=== PATIENT | male | born 1985 | race Caucasian/White ===

== ENCOUNTER 2018-03-30 12:24 | Inpatient (IN) | payer OTHER ==
[2018-03-30 13:15] VITALS: BMI 29.2
--- NOTE | 2018-03-30 15:53 | HP ---
CIWA Score - CIWA Score Nausea/Vomitin Muscle Tremors: 3 Anxiety: 3 Agitation: 3 Paroxysmal Sweats: 3 Orientation: 1-Uncertain about Date Tacttile Disturbances: 2-Mild Itch/Numbness/Burn Auditory Disturbances: 0-None Visual Disturbances: 0-None Headache: 0-None Present CIWA-Ar Total Score: 18 Admission ROS BHS - HPI Chief Complaint: "I am sick and tired of drinking and I need to get clean" Allergies/Adverse Reactions: Allergies Allergy/AdvReac Type Severity Reaction Status Date / Time trazodone AdvReac Severe Verified 03/30/18 15:53 History of Present Illness: 33 y/o male with a long history of alcohol addiction here today for alcohol detox. This is pt's first visit here although he stated he has had detox/rehab in the past. Endorses a hx of anxiety, depression, and bipolar and Pancreatitis Pt states he had attempted suicide in the past by attempting to jump in front of train a and by swallowing a bunch of pills as a second attempt. Denies any current Suicidal or homicidal ideation. Exam Limitations: No Limitations - Ebola screening Have you traveled outside of the country in the last 21 days: No (N) Have you had contact with anyone from an Ebola affected area: No Have you been sick,other than usual withdrawal symptoms: No Do you have a fever: No - Review of Systems Constitutional: No Symptoms Reported EENT: reports: Other (Has shortsigtedness but does not wear glasses) Respiratory: reports: No Symptoms reported Cardiac: reports: No Symptoms Reported GI: reports: No Symptoms Reported : reports: No Symptoms Reported Musculoskeletal: reports: Joint Pain Integumentary: reports: No Symptoms Reported Neuro: reports: No Symptoms reported Endocrine: reports: No Symptoms Reported Hematology: reports: No Symptoms Reported Psychiatric: reports: Mood/Affect Appropiate, Anxious Other Systems: Reviewed and Negative Patient History - Patient Medical History Hx Anemia: No Hx Asthma: No Hx Chronic Obstructive Pulmonary Disease (COPD): No Hx Cancer: No Hx Cardiac Disorders: No Hx Congestive Heart Failure: No Hx Hypertension: No (Dx and treated for HTN before, states diet controlled now.) Hx Hypercholesterolemia: No Hx Pacemaker: No HX Cerebrovascular Accident: No Hx Seizures: Yes (2013, alcohol-related) Hx Dementia: No Hx Diabetes: No Hx Gastrointestinal Disorders: Yes (GERD, on protonix) Hx Liver Disease: No Hx Genitourinary Disorders: No Hx Sexually Transmitted Disorders: No Hx Renal Disease (ESRD): No Hx Thyroid Disease: No Hx Human Immunodeficiency Virus (HIV): No (negative, lasted tested 12/2017) Hx Hepatitis C: No Hx Depression: Yes (treated but not on meds again) Hx Suicide Attempt: Yes (Previous attempt in the past. Denies current SI/HI) Hx Bipolar Disorder: Yes (treated before, not on meds now) Hx Schizophrenia: No - Patient Surgical History Past Surgical History: No Hx Neurologic Surgery: No Hx Cataract Extraction: No Hx Cardiac Surgery: No Hx Lung Surgery: No Hx Breast Surgery: No Hx Breast Biopsy: No Hx Abdominal Surgery: No Hx Appendectomy: No Hx Cholecystectomy: No Hx Genitourinary Surgery: No Hx Section: No Hx Orthopedic Surgery: No Hx Hysterectomy: No Anesthesia Reaction: No - PPD History Previous Implant?: Yes Documented Results: Negative w/o proof Implanted On Prior R Admission?: No PPD to be Administered?: Yes - Reproductive History Patient is a Female of Child Bearing Age (11 -55 yrs old): No - Smoking Cessation Smoking history: Current every day smoker Have you smoked in the past 12 months: Yes Aproximately how many cigarettes per day: 25 Initiated information on smoking cessation: Yes 'Breaking Loose' booklet given: 03/30/18 - Substances Abused Alcohol Route: Oral Frequency: Daily Amount used: 6 (6 x 24 0z) Age of first use: 17 Date of Last Use: 03/29/18 Family Disease History - Family Disease History Family Disease History: Other: Mother (Anxiety) Admission Physical Exam S - Vital Signs Vital Signs: Vital Signs - 24 hr 03/30/18 13:09 Temperature 98.4 F Pulse Rate 91 H Respiratory 18 Rate Blood Pressure 128/83 - Physical General Appearance: Yes: Mild Distress HEENTM: Yes: Within Normal Limits Respiratory: Yes: Within Normal Limits, No Respiratory Distress Neck: Yes: Within Normal Limits Breast: Yes: Breast Exam Deferred Cardiology: Yes: Regular Rhythm Abdominal: Yes: Non Tender, Distended Genitourinary: Yes: Within Normal Limits Back: Yes: Normal Inspection Musculoskeletal: Yes: full range of Motion, Gait Steady Extremities: Yes: Normal Capillary Refill Neurological: Yes: Within Normal Limits, Fully Oriented, Alert Integumentary: Yes: Within Normal Limits Lymphatic: Yes: Within Normal Limits - Diagnostic (1) Alcohol dependence with uncomplicated withdrawal Current Visit: Yes Status: Acute (2) Nicotine dependence Current Visit: Yes Status: Acute (3) Pancreatitis Current Visit: Yes Status: Chronic (4) Anxiety Current Visit: Yes Status: Chronic (5) Depression Current Visit: Yes Status: Chronic Cleared for Admission [facility] - Detox or Rehab [facility] Level of Care: Medically Managed Detox Regimen/Protocol: Librium S Breath Alcohol Content Breath Alcohol Content: 0.131 Urine Drug Screen - Results Drug Screen Negative: No Urine Drug Screen Results: BZO-Benzodiazepines
[2018-03-30] MEDS ORDERED: MAG HYDROX/AL HYDROX/SIMETH 30 ML UNIT-DOSE CUP PO PRN (17:03)
[2018-03-30] MEDS ORDERED: MAGNESIUM CITRATE 300 ML BOTTLE PO PRN (17:03)
[2018-03-30] MEDS ORDERED: ACETAMINOPHEN 325 MG TABLET (FP) PO PRN (17:03)
[2018-03-30] MEDS ORDERED: MAGNESIUM HYDROX 2400MG/30ML ORAL SUSPENSION 30 ML CUP PO PRN (17:03)
[2018-03-30] MEDS ORDERED: P-EPHED 60MG/TRIPROLIDI 2.5MG TABLET PO PRN (17:03)
[2018-03-30] MEDS ORDERED: MENTHOL/PHENOL 1 EACH UD MM PRN (17:03)
[2018-03-30] MEDS ORDERED: guaiFENesin/D-METHORPHAN HB 10 ML UNIT-DOSE CUPS PO PRN (17:03)
[2018-03-30] MEDS ORDERED: LOPERAMIDE HCL 2 MG CAPSULE PO PRN (17:03)
[2018-03-30] MEDS ORDERED: NICOTINE POLACRILEX 2 MG GUM BUC PRN (17:12)
[2018-03-30] MEDS: chlordiazePOXIDE HCL 25 MG CAPSULE PO SCH ×2 (18:30→22:29)
[2018-03-30] MEDS: NICOTINE 21 MG/24 HOURS TOPICAL PATCH TD SCH (18:31)
[2018-03-30] MEDS ORDERED: MELATONIN 5 MG TABLETS PO PRN (22:00)
[2018-03-30] MEDS: THIAMINE HCL 100 MG TABLET (FP) PO SCH (22:29)
[2018-03-31 00:15] LABS: URINE APPEARANCE CLEAR; URINE BILIRUBIN NEGATIVE (<2.0 mg/dL); URINE COLOR LTYELLOW; URINE GLUCOSE (UA) NEGATIVE (NEGATIVE); URINE KETONE NEGATIVE (NEGATIVE); URINE LEUK ESTERASE NEGATIVE (NEGATIVE); URINE NITRITE NEGATIVE (NEGATIVE); URINE PROTEIN NEGATIVE (NEGATIVE); URINE UROBILINOGEN NEGATIVE mg/dL (0.2-1.0)
[2018-03-31] MEDS: chlordiazePOXIDE HCL 25 MG CAPSULE PO SCH ×4 (05:35→22:19)
[2018-03-31 10:15] LABS: HEMATOCRIT 40.5 % (35.4-49); HEMOGLOBIN 13.3 GM/dL (11.7-16.9); MCH 28.1 pg (25.7-33.7); MEAN CELL VOLUME 85.3 fl (80-96); MEAN PLT VOLUME 8.7 fl (7.5-11.1); PLATELET COUNT 141 K/MM3 (134-434); RBC 4.75 M/mm3 (4.00-5.60); WHITE BLOOD COUNT 4.5 K/mm3 (4.0-10.0)
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
[2018-03-31] MEDS ORDERED: hydrOXYzine PAMOATE 50 MG CAPSULE (FP) PO PRN (10:24)
[2018-03-31] MEDS: PRENATAL VITAMINS W/ FOLIC ACID TABLET (FP) PO SCH (10:43)
[2018-03-31] MEDS: NICOTINE 21 MG/24 HOURS TOPICAL PATCH TD SCH (10:44)
[2018-03-31 11:04] LABS: ALBUMIN 3.6 g/dl (3.4-5.0); ALK PHOS 63 U/L (45-117); ANION GAP 8 MMOL/L (8-16); BILIRUBIN,TOTAL 0.4 mg/dL (0.2-1.0); BLOOD UREA NITROGEN 9 mg/dL (7-18); CALCIUM 8.8 mg/dL (8.5-10.1); CHLORIDE 108 mmol/L (98-107); CO2 31 mmol/L (21-32); CREATININE 0.9 mg/dL (0.7-1.3); GLUCOSE,RANDOM 128 mg/dL (74-106); POTASSIUM 4.5 mmol/L (3.5-5.1); SGOT/AST 121 U/L (15-37); SGPT/ALT 225 U/L (12-78); SODIUM 147 mmol/L (136-145); TOT PROT 6.6 g/dl (6.4-8.2)
--- NOTE | 2018-03-31 14:57 | PN ---
S CIWA - CIWA Score Nausea/Vomitin-Mild Nausea/No Vomiting Muscle Tremors: 4-Moderate,w/Arms Extend Anxiety: 4-Mod. Anxious/Guarded Agitation: 4-Moderately Restless Paroxysmal Sweats: 1-Minimal Palms Moist Orientation: 0-Oriented Tacttile Disturbances: 1-Very Mild Itch/Numbness Auditory Disturbances: 0-None Visual Disturbances: 0-None Headache: 0-None Present CIWA-Ar Total Score: 15 BHS Progress Note (SOAP) Subjective: TREMOR SWEAT RESTLESSNESS IRRITABLE ANXIETY Objective: 03/31/18 15:01 Vital Signs Temperature 97.7 F 03/31/18 13:29 Pulse Rate 74 03/31/18 13:29 Respiratory Rate 20 03/31/18 13:29 Blood Pressure 142/52 03/31/18 13:29 O2 Sat by Pulse Oximetry (%) Laboratory Last Values WBC 4.5 K/mm3 (4.0-10.0) 03/31/18 07:00 RBC 4.75 M/mm3 (4.00-5.60) 03/31/18 07:00 Hgb 13.3 GM/dL (11.7-16.9) 03/31/18 07:00 Hct 40.5 % (35.4-49) 03/31/18 07:00 MCV 85.3 fl (80-96) 03/31/18 07:00 MCH 28.1 pg (25.7-33.7) 03/31/18 07:00 MCHC 33.0 g/dl (32.0-35.9) 03/31/18 07:00 RDW 18.0 % (11.9-15.9) H 03/31/18 07:00 Plt Count 141 K/MM3 (134-434) 03/31/18 07:00 MPV 8.7 fl (7.5-11.1) 03/31/18 07:00 Sodium 147 mmol/L (136-145) H 03/31/18 07:00 Potassium 4.5 mmol/L (3.5-5.1) 03/31/18 07:00 Chloride 108 mmol/L (98-107) H 03/31/18 07:00 Carbon Dioxide 31 mmol/L (21-32) 03/31/18 07:00 Anion Gap 8 MMOL/L (8-16) 03/31/18 07:00 BUN 9 mg/dL (7-18) 03/31/18 07:00 Creatinine 0.9 mg/dL (0.7-1.3) 03/31/18 07:00 Creat Clearance w eGFR > 60 (>60) 03/31/18 07:00 Random Glucose 128 mg/dL (74-106) H 03/31/18 07:00 Calcium 8.8 mg/dL (8.5-10.1) 03/31/18 07:00 Total Bilirubin 0.4 mg/dL (0.2-1.0) 03/31/18 07:00 AST 121 U/L (15-37) H 03/31/18 07:00 ALT 225 U/L (12-78) H 03/31/18 07:00 Alkaline Phosphatase 63 U/L (45-117) 03/31/18 07:00 Total Protein 6.6 g/dl (6.4-8.2) 03/31/18 07:00 Albumin 3.6 g/dl (3.4-5.0) 03/31/18 07:00 Urine Color Ltyellow 03/30/18 23:27 Urine Appearance Clear 03/30/18 23:27 Urine pH 5.0 (5.0-8.0) 03/30/18 23:27 Ur Specific [place] 1.009 (1.001-1.035) 03/30/18 23:27 Urine Protein Negative (NEGATIVE) 03/30/18 23:27 Urine Glucose (UA) Negative (NEGATIVE) 03/30/18 23:27 Urine Ketones Negative (NEGATIVE) 03/30/18 23:27 Urine Blood Negative (NEGATIVE) 03/30/18 23:27 Urine Nitrite Negative (NEGATIVE) 03/30/18 23:27 Urine Bilirubin Negative (<2.0 mg/dL) 03/30/18 23:27 Urine Urobilinogen Negative mg/dL (0.2-1.0) 03/30/18 23:27 Ur Leukocyte Esterase Negative (NEGATIVE) 03/30/18 23:27 RPR Titer Nonreactive (NONREACTIVE) 03/31/18 07:00 LAB NOTED REPEAT AST ALT Assessment: 03/31/18 15:03 WITHDRAWAL SX LIVER ENZYME ELEVATION Plan: CONTINUE DETOX REPEAT AST ALT
[2018-03-31] MEDS: chlordiazePOXIDE HCL 25 MG CAPSULE PO PRN (15:35)
--- NOTE | 2018-03-31 16:32 | EKG ---
Test Reason : Blood Pressure : / mmHG Vent. Rate : 091 BPM Atrial Rate : 091 BPM P-R Int : 166 ms QRS Dur : 090 ms QT Int : 360 ms P-R-T Axes : 052 042 049 degrees QTc Int : 442 ms NORMAL SINUS RHYTHM NORMAL ECG NO PREVIOUS ECGS AVAILABLE Confirmed by Kavon Palomo ([id number]) on 03/31/2018 4:32:39 PM Referred By: Confirmed By:Kavon Palomo
[2018-03-31] MEDS: DIVALPROEX SODIUM 500 MG TABLET E.C. PO SCH (22:19)
[2018-03-31] MEDS: THIAMINE HCL 100 MG TABLET (FP) PO SCH (22:20)
[2018-03-31] MEDS: MIRTAZAPINE 15 MG TABLET (FP) PO SCH (22:20)
[2018-03-31] MEDS: IBUPROFEN 400 MG TABLET (FP) PO PRN (22:21)
[2018-04-01] MEDS: chlordiazePOXIDE HCL 25 MG CAPSULE PO SCH ×2 (05:36→10:40)
[2018-04-01] MEDS: PRENATAL VITAMINS W/ FOLIC ACID TABLET (FP) PO SCH (10:40)
[2018-04-01] MEDS: NICOTINE 21 MG/24 HOURS TOPICAL PATCH TD SCH (10:40)
--- NOTE | 2018-04-01 12:03 | PN ---
S CIWA - CIWA Score Nausea/Vomitin Muscle Tremors: 2 Anxiety: 2 Agitation: 2 Paroxysmal Sweats: 3 Orientation: 0-Oriented Tacttile Disturbances: 2-Mild Itch/Numbness/Burn Auditory Disturbances: 0-None Visual Disturbances: 0-None Headache: 0-None Present CIWA-Ar Total Score: 13 S Progress Note (SOAP) Subjective: interrupted sleep, sweats, bodyaches , neuropathy Objective: 04/01/18 12:01 Vital Signs Temperature 98.3 F 04/01/18 06:10 Pulse Rate 52 L 04/01/18 06:10 Respiratory Rate 18 04/01/18 06:10 Blood Pressure 137/79 04/01/18 06:10 O2 Sat by Pulse Oximetry (%) Laboratory Tests 03/30/18 03/31/18 03/31/18 23:27 07:00 07:00 WBC 4.5 RBC 4.75 Hgb 13.3 Hct 40.5 MCV 85.3 MCH 28.1 MCHC 33.0 RDW 18.0 H Plt Count 141 MPV 8.7 Sodium 147 H Potassium 4.5 Chloride 108 H Carbon Dioxide 31 Anion Gap 8 BUN 9 Creatinine 0.9 Creat Clearance w eGFR > 60 Random Glucose 128 H Calcium 8.8 Total Bilirubin 0.4 AST 121 H ALT 225 H Alkaline Phosphatase 63 Ammonia Total Protein 6.6 Albumin 3.6 Urine Color Ltyellow Urine Appearance Clear Urine pH 5.0 Ur Specific [place] 1.009 Urine Protein Negative Urine Glucose (UA) Negative Urine Ketones Negative Urine Blood Negative Urine Nitrite Negative Urine Bilirubin Negative Urine Urobilinogen Negative Ur Leukocyte Esterase Negative RPR Titer 03/31/18 04/01/18 07:00 07:30 WBC RBC Hgb Hct MCV MCH MCHC RDW Plt Count MPV Sodium Potassium Chloride Carbon Dioxide Anion Gap BUN Creatinine Creat Clearance w eGFR Random Glucose Calcium Total Bilirubin AST ALT Alkaline Phosphatase Ammonia 48.3 H Total Protein Albumin Urine Color Urine Appearance Urine pH Ur Specific [place] Urine Protein Urine Glucose (UA) Urine Ketones Urine Blood Urine Nitrite Urine Bilirubin Urine Urobilinogen Ur Leukocyte Esterase RPR Titer Nonreactive pt lying in bed aox3 , cooperative in nad Assessment: 04/01/18 12:01 withdrawal sx's elevated transaminases Plan: cont. detox increase fluids f/up pending labs
[2018-04-01 12:12] LABS: SGOT/AST 82 U/L (15-37); SGPT/ALT 181 U/L (12-78)
[2018-04-01] MEDS: chlordiazePOXIDE HCL 25 MG CAPSULE PO PRN (15:00)
[2018-04-01] MEDS: IBUPROFEN 400 MG TABLET (FP) PO PRN (17:43)
[2018-04-01] MEDS: chlordiazePOXIDE 5 MG CAPSULE PO SCH ×2 (17:44→22:10)
[2018-04-01] MEDS: DIVALPROEX SODIUM 500 MG TABLET E.C. PO SCH (22:10)
[2018-04-01] MEDS: MIRTAZAPINE 15 MG TABLET (FP) PO SCH (22:10)
[2018-04-01] MEDS: THIAMINE HCL 100 MG TABLET (FP) PO SCH (22:10)
[2018-04-01] MEDS ORDERED: cloNIDine HCL 0.1 MG TABLET PO ONE (23:45)
[2018-04-02] MEDS: chlordiazePOXIDE 5 MG CAPSULE PO SCH ×2 (04:08→10:48)
[2018-04-02] MEDS: IBUPROFEN 400 MG TABLET (FP) PO PRN ×2 (04:10→14:38)
[2018-04-02] MEDS: NICOTINE 21 MG/24 HOURS TOPICAL PATCH TD SCH (10:48)
[2018-04-02] MEDS: PRENATAL VITAMINS W/ FOLIC ACID TABLET (FP) PO SCH (10:48)
[2018-04-02] MEDS: chlordiazePOXIDE HCL 25 MG CAPSULE PO PRN (14:38)
[2018-04-02] MEDS: chlordiazePOXIDE HCL 10 MG CAPSULE PO SCH ×2 (17:26→22:04)
--- NOTE | 2018-04-02 20:37 | PN ---
BHS Progress Note (SOAP) Subjective: States still feeling a little anxious, otherwise much better. Objective: Alert and oriented x 3. Very mild tremors of hands felt. Vital Signs 04/02/18 04/02/18 13:38 17:27 Temperature 97.9 F 98.2 F Pulse Rate 60 73 Respiratory 18 18 Rate Blood Pressure 134/89 127/86 CMP Sodium 147 mmol/L (136-145) H 03/31/18 07:00 Potassium 4.5 mmol/L (3.5-5.1) 03/31/18 07:00 Chloride 108 mmol/L (98-107) H 03/31/18 07:00 Carbon Dioxide 31 mmol/L (21-32) 03/31/18 07:00 Anion Gap 8 MMOL/L (8-16) 03/31/18 07:00 BUN 9 mg/dL (7-18) 03/31/18 07:00 Creatinine 0.9 mg/dL (0.7-1.3) 03/31/18 07:00 Creat Clearance w eGFR > 60 (>60) 03/31/18 07:00 Random Glucose 128 mg/dL (74-106) H 03/31/18 07:00 Calcium 8.8 mg/dL (8.5-10.1) 03/31/18 07:00 Total Bilirubin 0.4 mg/dL (0.2-1.0) 03/31/18 07:00 AST 82 U/L (15-37) H D 04/01/18 07:30 ALT 181 U/L (12-78) H 04/01/18 07:30 Alkaline Phosphatase 63 U/L (45-117) 03/31/18 07:00 Ammonia 48.3 umol/L (11-32) H 04/01/18 07:30 Total Protein 6.6 g/dl (6.4-8.2) 03/31/18 07:00 Albumin 3.6 g/dl (3.4-5.0) 03/31/18 07:00 Labs reviewed. Assessment: Mild Alcohol withdrawal symptoms. Elevated AST, ALT and Ammonia. Plan: Continue detox. Repeat serum ammonia.
[2018-04-02] MEDS: MIRTAZAPINE 15 MG TABLET (FP) PO SCH (22:04)
[2018-04-02] MEDS: DIVALPROEX SODIUM 500 MG TABLET E.C. PO SCH (22:04)
[2018-04-02] MEDS: THIAMINE HCL 100 MG TABLET (FP) PO SCH (22:04)
[2018-04-03] MEDS: IBUPROFEN 400 MG TABLET (FP) PO PRN (01:46)
[2018-04-03] MEDS: chlordiazePOXIDE HCL 10 MG CAPSULE PO SCH (06:15)
[2018-04-03] MEDS: NICOTINE 21 MG/24 HOURS TOPICAL PATCH TD SCH (10:04)
[2018-04-03] MEDS: PRENATAL VITAMINS W/ FOLIC ACID TABLET (FP) PO SCH (10:04)
--- NOTE | 2018-04-03 13:15 | DS ---
[facility] Detox Discharge Summary Admission Date: 03/30/18 Discharge Date: 04/03/18 - History Present History: Alcohol Dependence - Physical Exam Results Vital Signs: Vital Signs Temperature 96.7 F L 04/03/18 09:10 Pulse Rate 62 04/03/18 09:10 Respiratory Rate 18 04/03/18 09:10 Blood Pressure 140/85 04/03/18 09:10 O2 Sat by Pulse Oximetry (%) Pertinent Admission Physical Exam Findings: All Active Problems Alcohol dependence with uncomplicated withdrawal (Acute) Serum ammonia increased (Acute) Anxiety (Chronic) Bipolar disorder (Chronic) Depression (Chronic) DARON (generalized anxiety disorder) (Chronic) Nicotine dependence (Chronic) Pancreatitis (Chronic) - Treatment Hospital Course: Detox Protocol Followed, Responded well - Medication Discharge Medications: Ambulatory Orders Divalproex [Depakote -] 500 mg PO HS 03/31/18 Mirtazapine 15 mg PO 03/31/18 - Diagnosis (1) Alcohol dependence with uncomplicated withdrawal Current Visit: Yes Status: Acute (2) Anxiety Current Visit: Yes Status: Chronic (3) Bipolar disorder Current Visit: Yes Status: Chronic Qualifiers: Most recent bipolar episode type: most recent episode unspecified type - AMA Did Patient Leave Against Medical Advice: No
[2018-04-03 13:26] VITALS: BP 135/76; PULSE 69; TEMP 98.1
== END 2018-04-03 14:46 | disposition home or self-care (01) | DRG 775 ==
LOC: YASAS 12:24 → Y6N 17:30
PROC: HZ2ZZZZ Detoxification Services for Substance Abuse Treatment (ICD-10-PCS; principal; 2018-03-30)
DX: F10.230 Alcohol dependence with withdrawal, uncomplicated (principal); F17.210 Nicotine dependence, cigarettes, uncomplicated; F31.9 Bipolar disorder, unspecified; F41.9 Anxiety disorder, unspecified; F41.1 Generalized anxiety disorder; E72.20 Disorder of urea cycle metabolism, unspecified; Z86.69 Personal history of other diseases of the nervous system and sense organs; Z91.5 Personal history of self-harm; Z88.8 Allergy status to other drugs, medicaments and biological substances
CPT/HCPCS: 36415; 80053; 81003; 82140; 84450; 84460; 85027; 86593; 93005; 93010; J0735